=== PATIENT | female | born 1985 | race African-American/Black ===

== ENCOUNTER 2019-12-05 14:00 | Outpatient (RCR) | payer OTHER, SELFPAY ==
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
--- NOTE | 2019-09-29 13:42 | PCPTNOTE ---
Patient called & cancelled scheduled appointment this date due to no transportation.
--- NOTE | 2019-10-17 12:44 | PCPTNOTE ---
Patient did not show up for scheduled appointment this date. Attempted to call pt, but voicemail full and unable to leave message. No additional appointments scheduled due to re-eval and insurance visits reached until new authorization approved.
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
--- NOTE | 2019-12-10 15:38 | PCPTNOTE ---
Patient did not show up for scheduled appointment this date.Attempted to call pt, but VM full.
--- NOTE | 2019-12-15 10:18 | PCPTNOTE ---
This treatment is being continued on visit number 19 to [id number]. Please see documentation on both accounts to view progress. Completed interventions, outcomes, and problems have been marked as Inactive to facilitate the copying of the Care plan routine for recurring accounts.
== END 2019-12-12 14:35 | disposition home or self-care (01) ==
LOC: ANHPT 14:00
DX: M54.5 Low back pain (principal)
CPT/HCPCS: 97014; 97022; 97110; 97113; 97163; 97530; G0283

== ENCOUNTER 2020-01-19 15:00 | Outpatient (RCR) | payer OTHER, SELFPAY ==
--- NOTE | 2019-12-15 10:19 | PCPTNOTE ---
The treatment documented on this account is a continuation of the treatment documented on visit number 19 from [id number]. Please see documentation on both accounts to view progress. The Plan of Care has been transitioned and updated within the new V#. I have addressed and agree with the discipline specific Problems, Interventions, and Goals for the current certification period. Completed interventions, outcomes, and problems have been marked as Inactive to facilitate the copying of the Care plan routine for recurring accounts.
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
--- NOTE | 2020-01-12 16:05 | PCPTNOTE ---
Pt no-showed and no-called for todays appointment @ 15:15.
--- NOTE | 2020-01-26 14:48 | PCPTNOTE ---
Patient did not show up for scheduled appointment this date. Will attempt to contact pt regarding additional therapy.
--- NOTE | 2020-01-26 14:51 | PCPTNOTE ---
Spoke with pt today, who states she is not feeling well. Reminded pt she is required to contact our facility when she is going to miss her therapy appointment. Instructed pt to continue with her HEP to maintain her level of function, strength and mobility. Will DC skilled therapy at this time with pt to contact us if new or additional problems occur.
--- NOTE | 2020-02-12 12:48 | PCPTNOTE ---
Admitting Provider: Attending Provider: PHYSICIAN NOT ON STAFF Patient:Daisy Hanks Date of :1985 Discharge Note Patient has not returned for any further treatments since 01/19/2020, therefore she will be discharged at this time. Patient?s initial visit was on 09/15/2019 and she had a total of 21 visits to address her chronic back pain. Treatment consisted of aquatic and land therapy intervention with progression of a HEP. She is independent with her HEP and performing a regular walking program The goals have been partially met at this time. She has reached maximal potential with skilled therapy and can maintain her level of function with her non-skilled exercise program. Thank you for referring this patient to [facility]. Please review, sign, date and return this discharge summary MYA. I have been updated about the patient's current status and I agree with discharge from the above service at this time. Referring Physician Date
== END 2020-03-02 12:41 | disposition home or self-care (01) ==
LOC: ANHPT 15:00
DX: M54.5 Low back pain (principal)
CPT/HCPCS: 97014; 97110; G0283